=== PATIENT | male | born 1965 | race Caucasian/White ===

== ENCOUNTER 2018-12-08 12:30 | Outpatient (CLI) | payer OTHER ==
[~2018-12-08] VITALS: Ht 177.8 cm; Wt 88.5 kg
[~2018-12-08 12:30] MED LIST: ROSU5TAB PO
== END 2018-12-08 13:22 | disposition home or self-care (01) ==
LOC: PREOP 12:30
PROVIDERS: ATTEND Internal Medicine
DX: Z01.818 Encounter for other preprocedural examination (principal)

== ENCOUNTER 2018-12-10 08:06 | Day surgery (SDC) | payer OTHER ==
--- NOTE | 2018-12-03 18:50 | HISTORY AND PHYSICAL ---
DATE OF SERVICE: COLONOSCOPY HISTORY AND PHYSICAL HISTORY OF PRESENT ILLNESS: The patient is a 52-year-old white male, referred by Dr. Slim Velasco for screening colonoscopy. He seemed to be of average risk. He is not aware of any family history for colon cancer or polyps. He does note that his dad and brother had undergone colonoscopy, but he is not sure as to whether or not they may have had polyps. He does know that there is no family history for cancer. He denies abdominal pain, change in bowel habit, weight, melena or bright red blood per rectum. PAST SURGICAL HISTORY: He has no significant past surgical history. PAST MEDICAL HISTORY: Significant for hyperlipidemia with no known history for vascular disease. MEDICATIONS ON ADMISSION: Include rosuvastatin 5 mg, he takes 4 to 5 times weekly. Fish oil, multivitamin, and lysine. FAMILY HISTORY: Grandfather in his 80s secondary to prostate cancer. Father is living at the age 75. No health problems. Brother 55 and no known health problems. SOCIAL HISTORY: He works in sales for [employer] with no past smoking or significant drinking history. PHYSICAL EXAMINATION: GENERAL: Reveals a well-appearing white male, in no acute distress. VITAL SIGNS: Weight 198.6 pounds, blood pressure 124/80. HEENT: Reveals a Mallampati class II pharyngeal configuration. No erythema is noted. CHEST: Clear to auscultation. CARDIOVASCULAR: Reveals a regular rate without murmer S3 or S4. ABDOMEN: Soft, supple without mass, organomegaly or tenderness. EXTREMITIES: Reveal no cyanosis, clubbing or edema. ASSESSMENT AND PLAN: The patient is set up for screening colonoscopy on the 10 of December. Prep instructions with Villanueva-prep kit were given and questions were answered. Job ID: [id number] DocumentID: [id number] Dictated Date: 12/01/2018 16:47:03 [employer] Date: 12/01/2018 17:08:18 Dictated By: PEARL ARGUETA MD [facility]
[~2018-12-10] VITALS: Ht 177.8 cm; Wt 88.5 kg
[2018-12-10] VITALS (10 sets, daily range): BP systolic 109–134; BP diastolic 72–85
[2018-12-10] MEDS ORDERED: D5 LR IV SOLUTION 1,000 ML IV ONE (08:14)
[2018-12-10] MEDS ORDERED: D5 LR IV SOLUTION 1,000 ML IV STA (08:20)
[2018-12-10] MEDS ORDERED: MIDAZOLAM 2 MG/2 ML (VERSED) VIAL IVP ONE (08:30)
[2018-12-10] MEDS ORDERED: fentaNYL INJECTION 100 MCG/2 ML AMP IVP ONE (08:30)
[2018-12-10] MEDS ORDERED: MIDAZOLAM 2 MG/2 ML (VERSED) VIAL ONE ×2 (08:45)
[2018-12-10] MEDS ORDERED: fentaNYL INJECTION 100 MCG/2 ML AMP ONE (08:45)
[2018-12-10] MEDS ORDERED: LIDOCAINE JELLY 2% 6 ML SYRINGE ONE (08:45)
--- NOTE | 2018-12-10 09:55 | Pre-Op Note & Conscious Sedat ---
Pre-Operative Progress Note H&P Reviewed The H&P was reviewed, patient examined and no changes noted. Date H&P Reviewed: Dec 10, 2018 Time H&P Reviewed: 09:10 Conscious Sedation Pre-Proced ASA Score 1 For ASA 3 and 4: Consider anesthesia and medical clearance. Also, for patients with a history of failed moderate sedation consider anesthesia. Airway Lungs Heart ASA score ASA 1: a normal healthy patient ASA 2: a patient with a mild systemic disease (mid diabetes, controlled hypertension, obesity ASA 3: a patient with a severe systemic disease that limits activity (angina, COPD, prior Myocardial infarction) ASA 4: a patient with an incapacitating disease that is a constant threat to life (CHF, renal failure) ASA 5: a moribund patient not expected to survive 24 hrs. (ruptured aneurysm) ASA 6: a declared brain- patient whose organs are being harvested. For emergent operations, add the letter E after the classification Mallampati Classification Grade 2 Sedation Plan Analgesia, Amnesia, Plan communicated to team members, Discussed options with patient/fam, Discussed risks with patient/fam The patient is an appropriate candidate to undergo the planned procedure, sedation, and anesthesia. The patient immediately re-assessed prior to indication. PEARL ARGUETA MD Dec 10, 2018 09:55
--- NOTE | 2018-12-10 14:50 | OPERATIVE REPORT ---
DATE OF SERVICE: 12/10/2018 PROCEDURE: Screening colonoscopy. The patient presented for his first screening colonoscopy. INDICATION FOR THE PROCEDURE: Digital rectal evaluation was performed. Anal sphincter tone was normal and the perianal reflexes intact. The prostate is mildly enlarged, anodular and nontender to digital inspection. No abnormalities, no digital inspection of anal canal or distal rectal vault. There was no evidence for internal or external hemorrhoids. The colonoscope was then inserted into the rectum and under direct visualization advanced to cecum. The cecum was identified by identification of the ileocecal valve and cecal strap. Photographic documentation was obtained. Careful inspection was made as the colonoscope was withdrawn. The quality of prep was good. The patient tolerated the procedure well. FINDINGS: There was no evidence of internal or external hemorrhoids and the rectum was unremarkable. Several small sigmoid diverticulum were present without evidence for diverticulitis. The descending colon, transverse colon and ascending colon were unremarkable. One Cecal diverticulum was present, small to moderate in size. No evidence for inflammation. ASSESSMENT: Mild diverticular disease was noted with one cecal diverticulum being noted and several sigmoid diverticulum with no evidence for diverticulitis. There was no evidence for neoplasia on today's evaluation. No other significant abnormalities were appreciated. The prostate is mildly enlarged, anodular and nontender to digital inspection compatible with mild benign prostatic hypertrophy. I thank you for the referral of this pleasant gentleman. Job ID: [id number] DocumentID: [id number] Dictated Date: 12/10/2018 10:48:38 [employer] Date: 12/10/2018 14:50:14 Dictated By: PEARL ARGUETA MD MTDD
== END 2018-12-10 10:35 | disposition home or self-care (01) ==
LOC: ENDO 08:06
PROVIDERS: ATTEND Internal Medicine
DX: Z12.11 Encounter for screening for malignant neoplasm of colon (principal); K57.30 Diverticulosis of large intestine without perforation or abscess without bleeding; N40.0 Benign prostatic hyperplasia without lower urinary tract symptoms; E78.5 Hyperlipidemia, unspecified